=== PATIENT | female | born 1950 | race Caucasian/White ===

== ENCOUNTER 2017-04-15 16:56 | Inpatient (IN) ==
[2017-04-15] MEDS ORDERED: NALOXONE 0.4 MG/ML VIAL ONE (17:10)
[2017-04-15] MEDS ORDERED: NALOXONE 0.4 MG/ML VIAL IV STA (17:10)
[2017-04-15] MEDS ORDERED: SODIUM CHLORIDE 0.9% 1,000 ML IV STA (17:55)
[2017-04-15 18:27] LABS: Basophils % 0.2 % (0.0-0.8); Eosinophils % 0.1 % (0.00-10.9); Hematocrit 30.3 VOL% (35.7-47.0); Hemoglobin 9.1 GM/DL (12.0-16.0); Immature Granulocytes Absolute 0.14 #; Lymphocytes # 1.2 10*3/uL (1.4-4.0); Lymphocytes % 8.4 % (21.3-54.2); Mean Corpuscular Hemoglobin 25 PG (27-34); Mean Corpuscular Volume 84.4 FL (87-102); Mean Platelet Volume 8.5 FL (9.6-12.0); Monocytes # 1.3 10*3/uL (0.11-0.8); Monocytes % 9.2 % (1.7-12.7); Neutrophils # 11.7 10*3/uL (1.4-7.4); Neutrophils % 81.1 % (38.7-73.9); Platelet Count 387 T/CUMM (130-400); Red Blood Count 3.59 MC/CUMM (3.8-5.5); White Blood Count 14.4 T/CUMM (4-12)
[2017-04-15 18:47] LABS: Magnesium 2.4 MG/DL (1.8-2.4)
[2017-04-15 19:01] LABS: Apearance,Urine CLOUDY (Clear); Bilirubin,Urine Negative (Negative); Blood, Urine Moderate mg/dL (Negative); Glucose,Urine (UA) Negative (Negative); Ketones,Urine Negative (Negative); Nitrite,Urine Positive (Negative); Protein,Urine 100 MG/DL; RBC,Urine 112 /HPF (0-4); Urine Color Amber (Yellow); Urine Specific Gravity 1.008 (1.001-1.035); WBC,Urine 1730 /HPF (0-6)
[2017-04-15] MEDS ORDERED: LEVOFLOXACIN INJ 750 MG in PREMIX 1 EACH IV STA (19:26)
[2017-04-15 19:36] LABS: Albumin 2.4 G/DL (3.4-5.0); Bilirubin,Total 0.5 MG/DL (0.2-1.0); Calcium 8.1 MG/DL (8.5-10.1); Total Protein 6.7 G/DL (6.4-8.3)
[2017-04-15 19:37] LABS: Osmolality,Calculated 281.3 MOS/KG (273-304); Potassium 4.1 MMOL/L (3.5-5.1)
[2017-04-15] MEDS ORDERED: LEVOFLOXACIN INJ 150 ML IV ONE (22:28)
[2017-04-15 22:35] LABS: Lactic Acid 0.8 MMOL/L (0.4-2.0)
[2017-04-16] MEDS ORDERED: ACETAMINOPHEN 325 MG TABLET PO PRN (00:30)
[2017-04-16] MEDS ORDERED: SODIUM CHLORIDE 0.9% 1,000 ML IV ONE (00:30)
[2017-04-16] MEDS ORDERED: ALBUTEROL/IPRATROPIUM 3 ML NEB RESP TX PRN (00:30)
[2017-04-16] MEDS ORDERED: ONDANSETRON 4 MG/2 ML VIAL IV PRN (00:30)
[2017-04-16] MEDS ORDERED: NICOTINE 21 MG/24 HR PATCH TRANSDERM PRN (00:30)
[2017-04-16] MEDS: ALBUTEROL/IPRATROPIUM 3 ML NEB RESP TX SCH ×4 (01:12→19:51)
[2017-04-16] MEDS: DOCUSATE SODIUM 100 MG CAPSULE PO SCH ×3 (01:50→20:50)
[2017-04-16] MEDS: PANTOPRAZOLE 40 MG VIAL IV SCH ×2 (01:50→21:42)
[2017-04-16] MEDS ORDERED: DOCUSATE SODIUM 100 MG CAPSULE ONE (02:02)
[2017-04-16] MEDS ORDERED: PANTOPRAZOLE 40 MG VIAL IV ONE (02:02)
[2017-04-16] MEDS: SODIUM CHLORIDE 0.9% 1,000 ML IV SCH ×2 (03:22→08:53)
[2017-04-16] MEDS: ENOXAPARIN 40 MG/0.4 ML SYRINGE SUBCUT SCH ×2 (03:22→20:48)
[2017-04-16] MEDS: FLUTICASONE 50 MCG NASAL SPRAY 16 GM BOTTLE BOTH NARES SCH (08:53)
[2017-04-16] MEDS: amLODIPine 10 MG TABLET PO SCH (09:15)
[2017-04-16] MEDS: LABETALOL 20 MG/4 ML SYRINGE IV PRN ×2 (09:17→14:07)
[2017-04-16] MEDS ORDERED: TEMAZEPAM 15 MG CAPSULE PO PRN (12:50)
[2017-04-16] MEDS ORDERED: fentaNYL 100 MCG/HR PATCH TRANSDERM SCH (13:00)
[2017-04-16] MEDS: VENLAFAXINE XR 75 MG CAPSULE PO SCH (13:17)
[2017-04-16] MEDS: ALPRAZolam 0.5 MG TABLET PO SCH ×2 (13:18→20:49)
[2017-04-16] MEDS: PHENAZOPYRIDINE 95 MG TABLET PO SCH (17:43)
[2017-04-16] MEDS ORDERED: SIMETHICONE CHEW 125 MG TABLET PO PRN (18:00)
[2017-04-16] MEDS: LISINOPRIL 10 MG TABLET PO SCH (20:49)
[2017-04-16] MEDS: CARVEDILOL 12.5 MG TABLET PO SCH (20:49)
[2017-04-16] MEDS: LEVOFLOXACIN INJ 750 MG in PREMIX 1 EACH IV SCH (20:51)
[2017-04-17] MEDS: ALBUTEROL/IPRATROPIUM 3 ML NEB RESP TX SCH ×4 (00:15→21:15)
[2017-04-17] MEDS: TEMAZEPAM 15 MG CAPSULE PO PRN ×2 (00:42→21:46)
[2017-04-17 05:30] LABS: Basophils % 0.2 % (0.0-0.8); Eosinophils # 0.1 10*3/uL (0.0-0.87); Eosinophils % 0.4 % (0.00-10.9); Hematocrit 25.8 VOL% (35.7-47.0); Hemoglobin 8.1 GM/DL (12.0-16.0); Immature Granulocytes % 0.7 %; Immature Granulocytes Absolute 0.09 #; Lymphocytes # 1.6 10*3/uL (1.4-4.0); Lymphocytes % 11.9 % (21.3-54.2); Mean Corpuscular HGB Conc 31.4 GM/DL (32-36); Mean Corpuscular Hemoglobin 26 PG (27-34); Mean Corpuscular Volume 81.6 FL (87-102); Mean Platelet Volume 8.7 FL (9.6-12.0); Monocytes # 1.4 10*3/uL (0.11-0.8); Monocytes % 9.9 % (1.7-12.7); Neutrophils # 10.6 10*3/uL (1.4-7.4); Neutrophils % 76.9 % (38.7-73.9); Platelet Count 358 T/CUMM (130-400); Red Blood Count 3.16 MC/CUMM (3.8-5.5); Red Cell Distribution Width 16.9 % (9.3-17.3); White Blood Count 13.7 T/CUMM (4-12)
[2017-04-17 06:11] LABS: Bilirubin,Total 0.7 MG/DL (0.2-1.0); Calcium 8.1 MG/DL (8.5-10.1); Osmolality,Calculated 277.4 MOS/KG (273-304); Potassium 3.9 MMOL/L (3.5-5.1); Total Protein 5.6 G/DL (6.4-8.3)
[2017-04-17] MEDS: amLODIPine 10 MG TABLET PO SCH (09:23)
[2017-04-17] MEDS: DOCUSATE SODIUM 100 MG CAPSULE PO SCH ×2 (09:23→21:48)
[2017-04-17] MEDS: ALPRAZolam 0.5 MG TABLET PO SCH ×2 (09:23→21:47)
[2017-04-17] MEDS: CARVEDILOL 12.5 MG TABLET PO SCH ×2 (09:23→21:47)
[2017-04-17] MEDS: VENLAFAXINE XR 75 MG CAPSULE PO SCH (09:23)
[2017-04-17] MEDS: LISINOPRIL 10 MG TABLET PO SCH ×2 (09:23→21:47)
[2017-04-17] MEDS: PHENAZOPYRIDINE 95 MG TABLET PO SCH ×3 (09:23→17:25)
[2017-04-17] MEDS: FLUTICASONE 50 MCG NASAL SPRAY 16 GM BOTTLE BOTH NARES SCH (09:24)
[2017-04-17] MEDS: PANTOPRAZOLE 40 MG VIAL IV SCH (20:48)
[2017-04-17] MEDS: LEVOFLOXACIN INJ 750 MG in PREMIX 1 EACH IV SCH (21:47)
[2017-04-17] MEDS: ENOXAPARIN 40 MG/0.4 ML SYRINGE SUBCUT SCH (21:47)
[2017-04-18] MEDS: ALBUTEROL/IPRATROPIUM 3 ML NEB RESP TX SCH ×2 (01:38→07:24)
[2017-04-18 06:54] LABS: Basophils % 0.3 % (0.0-0.8); Eosinophils # 0.1 10*3/uL (0.0-0.87); Eosinophils % 0.9 % (0.00-10.9); Hematocrit 25.6 VOL% (35.7-47.0); Immature Granulocytes Absolute 0.11 #; Lymphocytes # 1.7 10*3/uL (1.4-4.0); Lymphocytes % 15.1 % (21.3-54.2); Mean Corpuscular HGB Conc 31.3 GM/DL (32-36); Mean Corpuscular Hemoglobin 26 PG (27-34); Mean Corpuscular Volume 82.6 FL (87-102); Mean Platelet Volume 8.7 FL (9.6-12.0); Monocytes # 0.9 10*3/uL (0.11-0.8); Neutrophils # 8.6 10*3/uL (1.4-7.4); Neutrophils % 74.7 % (38.7-73.9); Platelet Count 357 T/CUMM (130-400); Red Cell Distribution Width 16.8 % (9.3-17.3); White Blood Count 11.5 T/CUMM (4-12)
[2017-04-18 07:34] LABS: Albumin 2.1 G/DL (3.4-5.0); Bilirubin,Total 0.7 MG/DL (0.2-1.0); Calcium 8.1 MG/DL (8.5-10.1); Osmolality,Calculated 276.4 MOS/KG (273-304); Potassium 4.1 MMOL/L (3.5-5.1)
[2017-04-18 07:51] VITALS: BP 111/74
[2017-04-18] MEDS: CARVEDILOL 12.5 MG TABLET PO SCH (09:02)
[2017-04-18] MEDS: ALPRAZolam 0.5 MG TABLET PO SCH (09:02)
[2017-04-18] MEDS: DOCUSATE SODIUM 100 MG CAPSULE PO SCH ×2 (09:02→09:04)
[2017-04-18] MEDS: VENLAFAXINE XR 75 MG CAPSULE PO SCH (09:02)
[2017-04-18] MEDS: PHENAZOPYRIDINE 95 MG TABLET PO SCH ×2 (09:02→13:19)
[2017-04-18] MEDS: FLUTICASONE 50 MCG NASAL SPRAY 16 GM BOTTLE BOTH NARES SCH (09:03)
[2017-04-18] MEDS: amLODIPine 10 MG TABLET PO SCH (09:03)
[2017-04-18] MEDS: LISINOPRIL 10 MG TABLET PO SCH (09:03)
== END 2017-04-18 12:59 | disposition hospice, home (50) | DRG 871 ==
LOC: EDUNIT# → EDBD → N.ED 16:56 → N.EDINP 20:37 → N.ICU 04-16 02:45 → N.2E 04-16 16:07
PROVIDERS: ADMIT Hospitalist; ATTEND Hospitalist

== ENCOUNTER 2017-05-25 08:50 | Inpatient (IN) ==
[2017-05-25] MEDS ORDERED: ONDANSETRON 4 MG/2 ML VIAL ONE ×2 (09:16→13:56)
[2017-05-25] MEDS ORDERED: ONDANSETRON 4 MG/2 ML VIAL IV STA (09:16)
[2017-05-25] MEDS ORDERED: HYDROmorphone 2 MG/1 ML VIAL ONE ×3 (09:16→16:35)
[2017-05-25] MEDS ORDERED: HYDROmorphone 2 MG/1 ML VIAL IV STA (09:16)
[2017-05-25 09:38] LABS: Basophils % 0.2 % (0.0-0.8); Eosinophils # 0.2 10*3/uL (0.0-0.87); Eosinophils % 1.5 % (0.00-10.9); Hemoglobin 9.2 GM/DL (12.0-16.0); Immature Granulocytes % 1.3 %; Immature Granulocytes Absolute 0.21 #; Lymphocytes % 12.6 % (21.3-54.2); Mean Corpuscular HGB Conc 31.7 GM/DL (32-36); Mean Corpuscular Hemoglobin 26 PG (27-34); Mean Corpuscular Volume 82.2 FL (87-102); Monocytes # 1.3 10*3/uL (0.11-0.8); Monocytes % 8.2 % (1.7-12.7); Neutrophils # 12.1 10*3/uL (1.4-7.4); Neutrophils % 76.2 % (38.7-73.9); Platelet Count 473 T/CUMM (130-400); Red Blood Count 3.53 MC/CUMM (3.8-5.5); Red Cell Distribution Width 18.1 % (9.3-17.3); White Blood Count 15.8 T/CUMM (4-12)
[2017-05-25 09:48] LABS: INR 0.9; PT Patient Result 9.9 SECS; Partial Thromboplastin Time 26.5 SECS (0-40)
[2017-05-25 10:01] LABS: Albumin 2.4 G/DL (3.4-5.0); Bilirubin,Total 0.4 MG/DL (0.2-1.0); Calcium 9.2 MG/DL (8.5-10.1); Osmolality,Calculated 276.8 MOS/KG (273-304); Potassium 4.1 MMOL/L (3.5-5.1)
[2017-05-25 10:49] LABS: Apearance,Urine CLEAR (Clear); Bacteria,Urine Occasional /HPF (Few); Bilirubin,Urine Negative (Negative); Blood, Urine Small mg/dL (Negative); Glucose,Urine (UA) Negative (Negative); Ketones,Urine Negative (Negative); Mucus,Urine Occasional /LPF (Occasional); Nitrite,Urine Negative (Negative); Protein,Urine Negative; RBC,Urine 2 /HPF (0-4); Squamous Epithelial Cell,Urine Occasional /HPF (0-10); Urine Color Yellow (Yellow); Urine Specific Gravity 1.006 (1.001-1.035); WBC,Urine 1 /HPF (0-6)
[2017-05-25] MEDS ORDERED: ALBUTEROL/IPRATROPIUM 3 ML NEB RESP TX STA (10:51)
[2017-05-25] MEDS ORDERED: CLINDAMYCIN INJ 50 ML IV ONE (12:48)
[2017-05-25] MEDS: HYDROmorphone 2 MG/1 ML VIAL IV PRN ×5 (13:58→18:00)
[2017-05-25] MEDS ORDERED: ONDANSETRON 4 MG/2 ML VIAL IV PRN (14:10)
[2017-05-25] MEDS ORDERED: ALBUTEROL/IPRATROPIUM 3 ML NEB RESP TX PRN (15:11)
[2017-05-25] MEDS ORDERED: PROPOFOL 200 MG/20 ML VIAL IV ONE (16:35)
[2017-05-25] MEDS ORDERED: ACETAMINOPHEN 1,000 MG/100 ML VIAL IV ONE (16:36)
[2017-05-25] MEDS ORDERED: fentaNYL 100 MCG/2 ML VIAL ONE (16:36)
[2017-05-25] MEDS: SODIUM CHLORIDE 0.9% 1,000 ML IV SCH (17:06)
[2017-05-25] MEDS: SIMETHICONE CHEW 125 MG TABLET PO SCH ×2 (17:08→19:39)
[2017-05-25] MEDS: fentaNYL 100 MCG/HR PATCH TRANSDERM SCH (17:59)
[2017-05-25] MEDS: KETOROLAC 15 MG/1 ML VIAL IV SCH (18:02)
[2017-05-25] MEDS: CLINDAMYCIN INJ 600 MG in PREMIX 1 EACH IV SCH (18:07)
[2017-05-25] MEDS: LISINOPRIL 10 MG TABLET PO SCH (20:53)
[2017-05-25] MEDS: MORPHINE IR 15 MG TABLET PO PRN (20:53)
[2017-05-26] MEDS: CLINDAMYCIN INJ 600 MG in PREMIX 1 EACH IV SCH ×4 (00:14→23:02)
[2017-05-26] MEDS: KETOROLAC 15 MG/1 ML VIAL IV SCH ×3 (00:15→11:46)
[2017-05-26] MEDS: SIMETHICONE CHEW 125 MG TABLET PO SCH ×5 (00:15→23:02)
[2017-05-26] MEDS: HYDROmorphone 2 MG/1 ML VIAL IV PRN ×2 (00:16→21:17)
[2017-05-26] MEDS: MORPHINE IR 15 MG TABLET PO PRN ×5 (02:05→23:02)
[2017-05-26] MEDS: SODIUM CHLORIDE 0.9% 1,000 ML IV SCH ×3 (04:37→15:10)
[2017-05-26 05:38] LABS: Basophils % 0.3 % (0.0-0.8); Eosinophils # 0.2 10*3/uL (0.0-0.87); Eosinophils % 1.3 % (0.00-10.9); Hematocrit 23.4 VOL% (35.7-47.0); Hemoglobin 7.3 GM/DL (12.0-16.0); Immature Granulocytes % 0.5 %; Immature Granulocytes Absolute 0.06 #; Lymphocytes % 17.5 % (21.3-54.2); Mean Corpuscular HGB Conc 31.2 GM/DL (32-36); Mean Corpuscular Hemoglobin 26 PG (27-34); Mean Platelet Volume 9.2 FL (9.6-12.0); Monocytes # 1.2 10*3/uL (0.11-0.8); Neutrophils # 7.7 10*3/uL (1.4-7.4); Neutrophils % 69.4 % (38.7-73.9); Platelet Count 376 T/CUMM (130-400); Red Blood Count 2.82 MC/CUMM (3.8-5.5); Red Cell Distribution Width 18.1 % (9.3-17.3); White Blood Count 11.1 T/CUMM (4-12)
[2017-05-26 05:45] LABS: Alanine Aminotransferase 16 U/L (13-56); Albumin 1.9 G/DL (3.4-5.0); Alkaline Phosphatase 65 U/L (45-117); Aspartate Amino Transferase 18 U/L (0-37); Bilirubin,Total < 0.39 MG/DL (0.2-1.0); Blood Urea Nitrogen 14 MG/DL (7-18); Calcium 7.9 MG/DL (8.5-10.1); Glucose 113 MG/DL (74-106); Osmolality,Calculated 278.5 MOS/KG (273-304); Potassium 4.2 MMOL/L (3.5-5.1); Sodium 139 MMOL/L (136-145); Total Protein 5.4 G/DL (6.4-8.3)
[2017-05-26 07:23] LABS: Sedimentation Rate-Westergren 121 MM/HR (0-30)
[2017-05-26] MEDS ORDERED: SODIUM CHLORIDE 0.9% 1,000 ML IV PRN (08:18)
[2017-05-26] MEDS: DOCUSATE/SENNA 50-8.6 MG TABLET PO SCH (09:10)
[2017-05-26] MEDS: POLYETHYLENE GLYCOL POWDER 17 GM PACK PO SCH (09:10)
[2017-05-26] MEDS: ENOXAPARIN 40 MG/0.4 ML SYRINGE SUBCUT SCH (09:10)
[2017-05-26] MEDS: PANTOPRAZOLE 40 MG TABLET PO SCH (09:10)
[2017-05-26] MEDS: LISINOPRIL 10 MG TABLET PO SCH ×2 (09:10→21:16)
[2017-05-26 10:46] LABS: Hemoglobin A1 (Alkaline) 97.3 % (96.5-98.5); Hemoglobin A2 (Alkaline) 2.7 % (1.5-3.5)
[2017-05-26 13:17] LABS: Folate 7.5 NG/ML (5.4-24.0); Vitamin B12 234 PG/ML (211-911)
[2017-05-27] MEDS: HYDROmorphone 2 MG/1 ML VIAL IV PRN ×3 (01:12→20:50)
[2017-05-27] MEDS: SODIUM CHLORIDE 0.9% 1,000 ML IV SCH ×4 (01:16→16:18)
[2017-05-27] MEDS: MORPHINE IR 15 MG TABLET PO PRN ×4 (03:56→16:23)
[2017-05-27] MEDS: SIMETHICONE CHEW 125 MG TABLET PO SCH ×3 (06:03→17:54)
[2017-05-27 06:32] LABS: Calcium 7.9 MG/DL (8.5-10.1); Osmolality,Calculated 274.7 MOS/KG (273-304); Potassium 4.4 MMOL/L (3.5-5.1)
[2017-05-27 07:12] LABS: Basophils # 0.1 10*3/uL (0.0-0.2); Basophils % 0.4 % (0.0-0.8); Eosinophils # 0.2 10*3/uL (0.0-0.87); Eosinophils % 1.6 % (0.00-10.9); Hematocrit 28.8 VOL% (35.7-47.0); Hemoglobin 9.1 GM/DL (12.0-16.0); Immature Granulocytes % 0.5 %; Immature Granulocytes Absolute 0.06 #; Lymphocytes # 1.7 10*3/uL (1.4-4.0); Lymphocytes % 14.3 % (21.3-54.2); Mean Corpuscular HGB Conc 31.6 GM/DL (32-36); Mean Corpuscular Hemoglobin 27 PG (27-34); Mean Corpuscular Volume 84.2 FL (87-102); Mean Platelet Volume 8.8 FL (9.6-12.0); Monocytes # 1.2 10*3/uL (0.11-0.8); Monocytes % 10.7 % (1.7-12.7); Neutrophils # 8.4 10*3/uL (1.4-7.4); Neutrophils % 72.5 % (38.7-73.9); Platelet Count 301 T/CUMM (130-400); Red Blood Count 3.42 MC/CUMM (3.8-5.5); Red Cell Distribution Width 16.3 % (9.3-17.3); White Blood Count 11.6 T/CUMM (4-12)
[2017-05-27 07:13] LABS: Hematocrit 27.9 VOL% (35.7-47.0); Hemoglobin 9.2 GM/DL (12.0-16.0)
[2017-05-27] MEDS: CLINDAMYCIN INJ 600 MG in PREMIX 1 EACH IV SCH ×2 (08:30→16:23)
[2017-05-27] MEDS: PANTOPRAZOLE 40 MG TABLET PO SCH (08:31)
[2017-05-27] MEDS: DOCUSATE/SENNA 50-8.6 MG TABLET PO SCH (08:31)
[2017-05-27] MEDS: ENOXAPARIN 40 MG/0.4 ML SYRINGE SUBCUT SCH (08:31)
[2017-05-27] MEDS: POLYETHYLENE GLYCOL POWDER 17 GM PACK PO SCH (08:31)
[2017-05-27] MEDS: LISINOPRIL 10 MG TABLET PO SCH ×2 (08:31→20:49)
[2017-05-27] MEDS ORDERED: BISACODYL 5 MG TABLET PO ONE (08:38)
[2017-05-27] MEDS: ONDANSETRON 4 MG/2 ML VIAL IV PRN (10:11)
[2017-05-27] MEDS: ZALEPLON 5 MG CAPSULE PO PRN (20:58)
[2017-05-28] MEDS: SIMETHICONE CHEW 125 MG TABLET PO SCH ×5 (00:01→23:45)
[2017-05-28] MEDS: CLINDAMYCIN INJ 600 MG in PREMIX 1 EACH IV SCH ×4 (00:01→23:45)
[2017-05-28] MEDS: HYDROmorphone 2 MG/1 ML VIAL IV PRN ×6 (00:04→20:36)
[2017-05-28] MEDS: SODIUM CHLORIDE 0.9% 1,000 ML IV SCH ×4 (00:10→23:44)
[2017-05-28 01:56] LABS: Apearance,Urine CLEAR (Clear); Bacteria,Urine Occasional /HPF (Few); Bilirubin,Urine Negative (Negative); Blood, Urine Small mg/dL (Negative); Glucose,Urine (UA) Negative (Negative); Ketones,Urine Negative (Negative); Mucus,Urine Occasional /LPF (Occasional); Nitrite,Urine Negative (Negative); Protein,Urine 30 MG/DL; RBC,Urine 2 /HPF (0-4); Squamous Epithelial Cell,Urine Occasional /HPF (0-10); Urine Color Straw (Yellow); Urine Specific Gravity 1.004 (1.001-1.035); Urine Urobilinogen < 2.0 EU/DL (0.2-1.0); WBC,Urine 38 /HPF (0-6)
[2017-05-28] MEDS: ONDANSETRON 4 MG/2 ML VIAL IV PRN ×2 (04:27→10:50)
[2017-05-28 06:28] LABS: Basophils % 0.3 % (0.0-0.8); Eosinophils # 0.1 10*3/uL (0.0-0.87); Eosinophils % 0.6 % (0.00-10.9); Hematocrit 30.8 VOL% (35.7-47.0); Hemoglobin 9.9 GM/DL (12.0-16.0); Immature Granulocytes % 0.7 %; Immature Granulocytes Absolute 0.08 #; Lymphocytes # 1.5 10*3/uL (1.4-4.0); Lymphocytes % 13.2 % (21.3-54.2); Mean Corpuscular HGB Conc 32.1 GM/DL (32-36); Mean Corpuscular Hemoglobin 26 PG (27-34); Mean Corpuscular Volume 81.9 FL (87-102); Monocytes # 0.9 10*3/uL (0.11-0.8); Monocytes % 8.3 % (1.7-12.7); Neutrophils # 8.6 10*3/uL (1.4-7.4); Neutrophils % 76.9 % (38.7-73.9); Platelet Count 353 T/CUMM (130-400); Red Blood Count 3.76 MC/CUMM (3.8-5.5); Red Cell Distribution Width 16.5 % (9.3-17.3); White Blood Count 11.2 T/CUMM (4-12)
[2017-05-28 06:55] LABS: Calcium 8.6 MG/DL (8.5-10.1); Osmolality,Calculated 270.8 MOS/KG (273-304); Potassium 3.7 MMOL/L (3.5-5.1)
[2017-05-28] MEDS: MORPHINE IR 15 MG TABLET PO PRN ×3 (07:08→23:44)
[2017-05-28] MEDS: LISINOPRIL 10 MG TABLET PO SCH (08:18)
[2017-05-28] MEDS: PANTOPRAZOLE 40 MG TABLET PO SCH (08:18)
[2017-05-28] MEDS: ENOXAPARIN 40 MG/0.4 ML SYRINGE SUBCUT SCH (08:18)
[2017-05-28] MEDS: DOCUSATE/SENNA 50-8.6 MG TABLET PO SCH (08:18)
[2017-05-28] MEDS: POLYETHYLENE GLYCOL POWDER 17 GM PACK PO SCH (08:18)
[2017-05-28] MEDS: LISINOPRIL 20 MG TABLET PO SCH ×3 (09:06→20:36)
[2017-05-28] MEDS: fentaNYL 100 MCG/HR PATCH TRANSDERM SCH (17:06)
[2017-05-28] MEDS: ZALEPLON 5 MG CAPSULE PO PRN (20:36)
[2017-05-29] MEDS: SIMETHICONE CHEW 125 MG TABLET PO SCH ×3 (05:45→17:40)
[2017-05-29] MEDS: MORPHINE IR 15 MG TABLET PO PRN ×3 (05:45→20:36)
[2017-05-29] MEDS: CLINDAMYCIN INJ 600 MG in PREMIX 1 EACH IV SCH ×2 (08:58→17:40)
[2017-05-29] MEDS: ENOXAPARIN 40 MG/0.4 ML SYRINGE SUBCUT SCH (08:58)
[2017-05-29] MEDS: POLYETHYLENE GLYCOL POWDER 17 GM PACK PO SCH (08:58)
[2017-05-29] MEDS: DOCUSATE/SENNA 50-8.6 MG TABLET PO SCH (08:59)
[2017-05-29] MEDS: HYDROmorphone 2 MG/1 ML VIAL IV PRN ×3 (08:59→22:47)
[2017-05-29] MEDS: PANTOPRAZOLE 40 MG TABLET PO SCH (08:59)
[2017-05-29] MEDS: LISINOPRIL 20 MG TABLET PO SCH ×2 (09:00→20:35)
[2017-05-29] MEDS: SODIUM CHLORIDE 0.9% 1,000 ML IV SCH ×2 (09:00→18:49)
[2017-05-29] MEDS ORDERED: BISACODYL 10 MG SUPP RECTAL PRN (11:06)
[2017-05-30] MEDS: SIMETHICONE CHEW 125 MG TABLET PO SCH ×4 (00:26→18:35)
[2017-05-30] MEDS: CLINDAMYCIN INJ 600 MG in PREMIX 1 EACH IV SCH ×3 (00:26→16:55)
[2017-05-30] MEDS: SODIUM CHLORIDE 0.9% 1,000 ML IV SCH ×4 (02:49→21:41)
[2017-05-30] MEDS: MORPHINE IR 15 MG TABLET PO PRN ×3 (03:40→20:36)
[2017-05-30] MEDS: HYDROmorphone 2 MG/1 ML VIAL IV PRN ×3 (08:45→21:38)
[2017-05-30] MEDS: ENOXAPARIN 40 MG/0.4 ML SYRINGE SUBCUT SCH (09:26)
[2017-05-30] MEDS: PANTOPRAZOLE 40 MG TABLET PO SCH (09:29)
[2017-05-30] MEDS: LISINOPRIL 20 MG TABLET PO SCH ×2 (09:29→20:35)
[2017-05-30] MEDS: DOCUSATE/SENNA 50-8.6 MG TABLET PO SCH (09:29)
[2017-05-30] MEDS: POLYETHYLENE GLYCOL POWDER 17 GM PACK PO SCH (09:30)
[2017-05-30] MEDS: amLODIPine 5 MG TABLET PO SCH (12:24)
[2017-05-30] MEDS: ONDANSETRON 4 MG/2 ML VIAL IV PRN (15:01)
[2017-05-31] MEDS: CLINDAMYCIN INJ 600 MG in PREMIX 1 EACH IV SCH ×2 (00:44→09:21)
[2017-05-31] MEDS: MORPHINE IR 15 MG TABLET PO PRN ×3 (00:44→17:10)
[2017-05-31] MEDS: SIMETHICONE CHEW 125 MG TABLET PO SCH ×4 (00:44→17:10)
[2017-05-31 02:52] LABS: Basophils # 0.1 10*3/uL (0.0-0.2); Basophils % 0.5 % (0.0-0.8); Eosinophils # 0.3 10*3/uL (0.0-0.87); Eosinophils % 2.7 % (0.00-10.9); Hematocrit 30.7 VOL% (35.7-47.0); Hemoglobin 9.8 GM/DL (12.0-16.0); Immature Granulocytes % 0.8 %; Immature Granulocytes Absolute 0.09 #; Lymphocytes # 2.2 10*3/uL (1.4-4.0); Lymphocytes % 19.5 % (21.3-54.2); Mean Corpuscular HGB Conc 31.9 GM/DL (32-36); Mean Corpuscular Hemoglobin 26 PG (27-34); Mean Corpuscular Volume 82.3 FL (87-102); Monocytes # 1.2 10*3/uL (0.11-0.8); Monocytes % 10.8 % (1.7-12.7); Neutrophils # 7.4 10*3/uL (1.4-7.4); Neutrophils % 65.7 % (38.7-73.9); Platelet Count 470 T/CUMM (130-400); Red Blood Count 3.73 MC/CUMM (3.8-5.5); Red Cell Distribution Width 17.1 % (9.3-17.3); White Blood Count 11.3 T/CUMM (4-12)
[2017-05-31 04:59] LABS: Osmolality,Calculated 273.7 MOS/KG (273-304); Potassium 4.3 MMOL/L (3.5-5.1)
[2017-05-31] MEDS: ONDANSETRON 4 MG/2 ML VIAL IV PRN (05:53)
[2017-05-31] MEDS: HYDROmorphone 2 MG/1 ML VIAL IV PRN ×3 (05:54→22:32)
[2017-05-31] MEDS: SODIUM CHLORIDE 0.9% 1,000 ML IV SCH ×3 (05:55→18:32)
[2017-05-31] MEDS: amLODIPine 5 MG TABLET PO SCH (09:26)
[2017-05-31] MEDS: POLYETHYLENE GLYCOL POWDER 17 GM PACK PO SCH (09:27)
[2017-05-31] MEDS: PANTOPRAZOLE 40 MG TABLET PO SCH (09:27)
[2017-05-31] MEDS: LISINOPRIL 20 MG TABLET PO SCH ×2 (09:28→22:41)
[2017-05-31] MEDS: DOCUSATE/SENNA 50-8.6 MG TABLET PO SCH (09:28)
[2017-05-31] MEDS: ENOXAPARIN 40 MG/0.4 ML SYRINGE SUBCUT SCH (09:29)
[2017-05-31] MEDS ORDERED: SULFAMETHOX/TRIMETHOPRIM 400-80 MG TABLET PO SCH (09:30)
[2017-05-31] MEDS: VANCOMYCIN INJ 1,000 MG in SODIUM CHLORIDE 0.9% 250 ML IV SCH (13:29)
[2017-05-31] MEDS: fentaNYL 100 MCG/HR PATCH TRANSDERM SCH (15:47)
[2017-06-01] MEDS: VANCOMYCIN INJ 1,000 MG in SODIUM CHLORIDE 0.9% 250 ML IV SCH (00:48)
[2017-06-01] MEDS: SIMETHICONE CHEW 125 MG TABLET PO SCH ×4 (00:48→17:34)
[2017-06-01] MEDS: HYDROmorphone 2 MG/1 ML VIAL IV PRN ×3 (04:10→21:19)
[2017-06-01] MEDS: SODIUM CHLORIDE 0.9% 1,000 ML IV SCH ×3 (06:30→17:31)
[2017-06-01] MEDS: ONDANSETRON 4 MG/2 ML VIAL IV PRN (09:08)
[2017-06-01] MEDS: ENOXAPARIN 40 MG/0.4 ML SYRINGE SUBCUT SCH (09:11)
[2017-06-01] MEDS: LISINOPRIL 20 MG TABLET PO SCH ×2 (09:13→21:18)
[2017-06-01] MEDS: PANTOPRAZOLE 40 MG TABLET PO SCH (09:13)
[2017-06-01] MEDS: amLODIPine 5 MG TABLET PO SCH ×2 (09:13→21:18)
[2017-06-01] MEDS: DOCUSATE/SENNA 50-8.6 MG TABLET PO SCH (09:16)
[2017-06-01] MEDS: POLYETHYLENE GLYCOL POWDER 17 GM PACK PO SCH (09:16)
[2017-06-01] MEDS: MORPHINE IR 15 MG TABLET PO PRN ×2 (09:17→17:34)
[2017-06-02] MEDS: MORPHINE IR 15 MG TABLET PO PRN ×3 (01:29→14:58)
[2017-06-02] MEDS: SIMETHICONE CHEW 125 MG TABLET PO SCH ×5 (01:29→21:01)
[2017-06-02] MEDS: SODIUM CHLORIDE 0.9% 1,000 ML IV SCH ×4 (03:17→23:51)
[2017-06-02] MEDS: PANTOPRAZOLE 40 MG TABLET PO SCH (09:17)
[2017-06-02] MEDS: LISINOPRIL 20 MG TABLET PO SCH ×2 (09:17→21:00)
[2017-06-02] MEDS: DOCUSATE/SENNA 50-8.6 MG TABLET PO SCH (09:17)
[2017-06-02] MEDS: ENOXAPARIN 40 MG/0.4 ML SYRINGE SUBCUT SCH (09:18)
[2017-06-02] MEDS: amLODIPine 5 MG TABLET PO SCH ×2 (09:18→21:00)
[2017-06-02] MEDS: ONDANSETRON 4 MG/2 ML VIAL IV PRN ×3 (09:18→21:11)
[2017-06-02] MEDS: HYDROmorphone 2 MG/1 ML VIAL IV PRN ×3 (11:12→21:01)
[2017-06-02] MEDS: POLYETHYLENE GLYCOL POWDER 17 GM PACK PO SCH (11:21)
[2017-06-03] MEDS: MORPHINE IR 15 MG TABLET PO PRN ×3 (00:45→14:09)
[2017-06-03] MEDS: SIMETHICONE CHEW 125 MG TABLET PO SCH ×3 (01:11→14:09)
[2017-06-03] MEDS: HYDROmorphone 2 MG/1 ML VIAL IV PRN ×2 (04:11→10:14)
[2017-06-03 06:35] LABS: Basophils # 0.1 10*3/uL (0.0-0.2); Basophils % 0.6 % (0.0-0.8); Eosinophils # 0.5 10*3/uL (0.0-0.87); Eosinophils % 3.9 % (0.00-10.9); Hematocrit 31.9 VOL% (35.7-47.0); Hemoglobin 10.6 GM/DL (12.0-16.0); Immature Granulocytes Absolute 0.12 #; Lymphocytes # 2.4 10*3/uL (1.4-4.0); Mean Corpuscular HGB Conc 33.2 GM/DL (32-36); Mean Corpuscular Hemoglobin 27 PG (27-34); Mean Corpuscular Volume 82.2 FL (87-102); Mean Platelet Volume 8.9 FL (9.6-12.0); Monocytes # 1.3 10*3/uL (0.11-0.8); Monocytes % 10.4 % (1.7-12.7); NRBC # 0.02 10*3/uL; Neutrophils # 8.2 10*3/uL (1.4-7.4); Neutrophils % 65.1 % (38.7-73.9); Platelet Count 556 T/CUMM (130-400); Red Blood Count 3.88 MC/CUMM (3.8-5.5); Red Cell Distribution Width 17.2 % (9.3-17.3); White Blood Count 12.6 T/CUMM (4-12)
[2017-06-03 07:11] LABS: Calcium 9.5 MG/DL (8.5-10.1); Osmolality,Calculated 275.7 MOS/KG (273-304); Potassium 5.3 MMOL/L (3.5-5.1)
[2017-06-03] MEDS: SODIUM CHLORIDE 0.9% 1,000 ML IV SCH ×2 (07:13→14:35)
[2017-06-03] MEDS: LISINOPRIL 20 MG TABLET PO SCH (08:07)
[2017-06-03] MEDS: ENOXAPARIN 40 MG/0.4 ML SYRINGE SUBCUT SCH (08:53)
[2017-06-03] MEDS: POLYETHYLENE GLYCOL POWDER 17 GM PACK PO SCH (08:54)
[2017-06-03] MEDS: PANTOPRAZOLE 40 MG TABLET PO SCH (08:54)
[2017-06-03] MEDS: amLODIPine 5 MG TABLET PO SCH (08:54)
[2017-06-03] MEDS: DOCUSATE/SENNA 50-8.6 MG TABLET PO SCH (08:54)
[2017-06-03 11:21] VITALS: BP 121/80
[2017-06-03] MEDS: ONDANSETRON 4 MG/2 ML VIAL IV PRN (14:09)
== END 2017-06-03 15:50 | DRG 481 ==
LOC: EDUNIT# → EDBD → N.ED 08:50 → N.EDINP 10:55 → N.3E 15:06